=== PATIENT | male | born 1965 | race Caucasian/White ===

== ENCOUNTER 2017-01-06 08:57 | Day surgery (SDC) | payer OTHER ==
[2016-12-31 11:30] VITALS: BMI 27.7
[2017-01-06] MEDS ORDERED: methylPREDNISolone ACET (DEPO) 40 MG/1 ML VIAL ONE (10:20)
[2017-01-06] MEDS ORDERED: THROMBIN (BOVINE) 5,000 UNIT VIAL TP ONE ×2 (10:20→12:19)
[2017-01-06] MEDS ORDERED: GUM MASTIC/STORAX/MSAL/ALCOHOL 1 DRP DROPSBTL MC ONE (10:21)
[2017-01-06] MEDS ORDERED: LIDOCAINE 1%/EPI 1:100000 (20 ML MULTI DOSE VIAL) ONE (10:21)
[2017-01-06] MEDS ORDERED: BUPIVACAINE HCL/PF 2.5 MG/ML - 30 ML VIAL IJ ONE (10:21)
[2017-01-06] MEDS ORDERED: oxyCODONE HCL 10 MG SUSTAINED ACTING TABLET PO ONE (10:23)
--- NOTE | 2017-01-06 10:25 | HP ---
History & Physical Update - History History: No Change - Physical Physical: No Change - Assessment Assessment: No Change - Plan Plan: No Change
[2017-01-06] MEDS ORDERED: MIDAZOLAM HCL 2 MG/2 ML SINGLE DOSE VIAL ONE ×3 (10:30→12:56)
[2017-01-06] MEDS ORDERED: LIDOCAINE 1%/EPI 1:100000 (50 ML MULTI DOSE VIAL) INF ONE (11:20)
[2017-01-06] MEDS ORDERED: ceFAZolin SODIUM 1 GM VIAL ONE (11:46)
[2017-01-06] MEDS ORDERED: ONDANSETRON 4 MG/2 ML VIAL ONE (11:46)
[2017-01-06] MEDS ORDERED: DEXAMETHASONE SOD PHOSPHATE 4 MG/1 ML VIAL ONE (11:46)
[2017-01-06] MEDS ORDERED: methylPREDNISolone ACET (DEPO) 40 MG/1 ML VIAL NR ONE (12:17)
[2017-01-06] MEDS ORDERED: BUPIVACAINE HCL/PF 0.25% (2.5MG/ML) 10 ML VIAL IJ ONE (12:19)
[2017-01-06] MEDS ORDERED: GELATIN, ABSORBABLE 100 EACH SPONGE TP ONE (12:22)
[2017-01-06] MEDS ORDERED: ONDANSETRON 4 MG/2 ML VIAL IVPUSH PRN (14:18)
[2017-01-06] MEDS ORDERED: oxyCODONE HCL 5 MG TABLET PO PRN (14:18)
--- NOTE | 2017-01-06 14:24 | OP ---
Operative Note - Note: Operative Date: 01/06/17 Pre-Operative Diagnosis: spinal stenosis Operation: L5-S1 laminectomy, dural tear repair, microdiscetomy Surgeon: Bulmaro Cabrera Pantry Cook: Ibeth Hardwick Anesthesiologist/RIB TRIM SEPARATOR: Melinda Walker Anesthesia: Spinal Specimens Removed: L5-S1 disc Estimated Blood Loss (mls): 30 Fluid Volume Replaced (mls): 1,600 Operative Report Dictated: Yes
--- NOTE | 2017-01-06 14:25 | SURG ---
Surgery Sugar Laboratory Assistant Note Sugar Laboratory Assistant: Ibeth Hardwick PA-C Date of Service: 01/06/17 Diagnosis: L5-S1 spinal stenosis Procedure: laminectomy of L5-S1 with microdiscectomy, repair of dural tear I was present for the entirety of the operative procedure. For further detail, please refer to operative report. Visit type - Case Type Case Type: Scheduled Admission - Emergency Emergency Visit: No - New patient This patient is new to me today: Yes Date on this admission: 01/06/17 - Critical Care Critical Care patient: No
[2017-01-06] MEDS ORDERED: LACTATED RINGERS SOLUTION 1,000 ML IV SCH (14:30)
[2017-01-06 17:49] VITALS: BP 116/70; PULSE 64; TEMP 95
--- NOTE | 2017-01-07 09:53 | OP ---
DATE OF OPERATION: 01/06/2017 PREOPERATIVE DIAGNOSIS: Spinal stenosis, L5-S1. POSTOPERATIVE DIAGNOSIS: Spinal stenosis, L5-S1. PROCEDURES PERFORMED: Revision laminectomy, L5-S1. SURGEON: Bulmaro Cabrera MD SHOWER SCREEN INSTALLER: LOLITA Crowell ESTIMATED BLOOD LOSS: 50 mL. INTRAVENOUS FLUID: Per Anesthesia. ANESTHESIA: Spinal. COMPLICATIONS: There were none. DISPOSITION: Patient brought to the PACU in stable condition. INDICATIONS FOR SURGERY: The patient is a 51-year-old gentleman who has been suffering from pain from his back down his left leg. X-rays and MRI were completed, which noted that he had a herniated disc. He had gone through an exhaustive course of treatment for this which included medications, physical therapy, as well as injections, but unfortunately, his pain continued to persist. At this point, risks, benefits, and alternatives were discussed, and the patient consented to surgery. OPERATIVE NOTE: Patient was brought to the operating room by the anesthesia staff. After appropriate patient identification was performed and spinal anesthesia was given, he was placed prone onto the Mendoza frame with all areas of bony prominences well padded. At this time, two needles were placed in his back to pj off the L5-S1 segment. X-rays taken to confirm this was correct. The needle was removed at this time, and 10 mL of lidocaine with epinephrine was injected into the back at this time. His back was prepped and draped in a sterile manner. At this point, a time-out was completed. An incision was made over the L5-S1 segment. Dissection was carried down to the fascia. Fascia was split open at this time. A spinal needle was placed onto the L5 lamina, and x-rays taken to confirm this was correct. The needle was removed, and the microscope was brought in. The interspinous ligament at L5-S1 was removed. Portions of the L5-S1 spinous processes were removed. The ligamentum flavum was peeled off. It should be noted that in peeling off the ligamentum flavum, there was a significant amount of scar tissue, and peeling the dura off of the scar tissue, a dural tear was noted, but it appeared to be stable as there was no CSF leaking from it. The S1 nerve root was dissected off from scar tissue, and it was peeled. It was mobilized medially and dyskinesia was noted. It was removed at this time. Portions of the inferior and superior facets were removed, such that, by the end of the procedure, the S1 nerve root appeared to be well decompressed. All bleeding was well controlled at this time. A DuraGen patch was placed over the dural tear. Tisseel was placed over that. The fascia was closed with a No. 1 Vicryl suture. The subcutaneous tissues were closed with 2-0 Vicryl suture. Skin was closed with 3-0 Monocryl suture. Dermabond was applied. Steri-Strips were applied. Sterile dressings applied. Patient was placed supine on the OR bed and brought to the PACU in stable condition. BULMARO CABRERA M.D. ASHLEY/[id number]
--- NOTE | 2017-01-08 15:49 | PATH ---
Surgical Pathology Report Patient Name: OLIVIA JORGE [facility]. Rec. #: [id number] /Age/Gender: 1965 (Age: 51) / M Account: [id number] Location: [facility] Taken: 01/06/2017 Received: 01/06/2017 Reported: 01/08/2017 Physicians: Bulmaro Cabrera M.D. Specimen(s) Received L5-S1 DISC Clinical History Spinal stenosis Final Diagnosis DISC L5-S1, DISCECTOMY: CARTILAGE WITH DEGENERATIVE CHANGES. Electronically Signed Eboni Verdugo M.D. Gross Description Received in formalin labeled "L5-S1 disc," is a 1.3 x 1.0 x 0.3 cm aggregate of gilmore fragments of fibrocartilaginous tissue. The specimen is submitted in toto in one cassette. 01/07/201701/07/2017
== END 2017-01-06 17:35 | disposition home or self-care (01) ==
LOC: FASU 08:57
PROVIDERS: ATTEND Orthopaedic Surgery Orthopaedic Surgery of the Spine
PROC: 01NB0ZZ Release Lumbar Nerve, Open Approach (ICD-10-PCS; principal; 2017-01-06 10:58)
DX: M48.07 Spinal stenosis, lumbosacral region (principal)
CPT/HCPCS: 88304-TC; 94760